=== PATIENT | male | born 1995 | race Caucasian/White ===

== ENCOUNTER 2018-06-29 18:32 | Emergency (ER) | payer OTHER ==
[~2018-06-29] VITALS: Ht 170.2 cm; Wt 55.5 kg
[2018-06-29 18:39] VITALS: Ht 170.2 cm; Wt 55.5 kg
[2018-06-29 20:33] VITALS: BP 140/80
== END 2018-06-29 20:33 | disposition home or self-care (01) ==
LOC: ED 18:32
DX: F10.239 Alcohol dependence with withdrawal, unspecified (principal); G43.909 Migraine, unspecified, not intractable, without status migrainosus; R20.2 Paresthesia of skin; R11.10 Vomiting, unspecified; R25.2 Cramp and spasm

== ENCOUNTER 2020-02-15 10:32 | Emergency (ER) | payer OTHER ==
[~2020-02-15] VITALS: Ht 170.2 cm; Wt 76.2 kg
[2020-02-15 10:49] VITALS: Ht 170.2 cm; Wt 76.2 kg
[2020-02-15 11:26] LABS: BASOPHIL % 0.3 % (0-2); PLATELET COUNT 266 x10^3mcL (130-400); RED CELL DISTRIBUTION WIDTH 12.4 % (11.5-14.5)
[2020-02-15 11:39] LABS: CALCIUM 9.1 mg/dL (8.5-10.1); CARBON DIOXIDE 18.3 mmol/L (21-32); CHLORIDE SERUM 91 mmol/L (98-107); CREATININE SERUM 1.1 mg/dL (0.7-1.3); GFR1 > 60 mL/min; GLUCOSE SERUM 146 mg/dL (74-106); POTASSIUM SERUM 3.6 mmol/L (3.5-5.1); SODIUM SERUM 131 mmol/L (136-145)
[2020-02-15 11:43] LABS: ALBUMIN 4.7 g/dL (3.4-5.0); ALKALINE PHOSPHATASE 86 U/L (46-116); ALT/SGPT 185 U/L (16-63); AST/SGOT 271 U/L (15-37); BILIRUBIN TOTAL 1.31 mg/dL (0.20-1.00); LIPASE 81 IU/L (73-393); TOTAL PROTEIN, SERUM 8.5 g/dL (6.4-8.2)
[2020-02-15 11:57] LABS: FREE T4 1.03 ng/dL (0.76-1.46); FREE THYROXINE INDEX 2.6 ug/dL (1.4-4.5); T4(THYROXINE) 6.6 ug/dL (4.7-13.3)
[2020-02-15 14:23] VITALS: BP 128/69
== END 2020-02-15 14:23 | disposition home or self-care (01) ==
LOC: ED 10:32
PROVIDERS: Emergency Medicine
DX: R53.1 Weakness (principal); R74.0 Nonspecific elevation of levels of transaminase and lactic acid dehydrogenase [LDH]; F41.9 Anxiety disorder, unspecified; R42 Dizziness and giddiness; R11.0 Nausea; R10.13 Epigastric pain; G43.909 Migraine, unspecified, not intractable, without status migrainosus
CPT/HCPCS: 84439; J2405; J7030; Q0092

== ENCOUNTER 2020-09-12 08:52 | Emergency (ER) | payer OTHER ==
[~2020-09-12] VITALS: Ht 170.2 cm; Wt 72.6 kg
[2020-09-12 09:18] VITALS: BP 115/66; Ht 170.2 cm; Wt 72.6 kg
== END 2020-09-12 09:36 | disposition home or self-care (01) ==
LOC: ED 08:52
DX: M43.6 Torticollis (principal); G43.909 Migraine, unspecified, not intractable, without status migrainosus